=== PATIENT | female | born 1995 | race Caucasian/White ===

== ENCOUNTER 2017-06-27 18:26 | Emergency (ER) | payer OTHER ==
[~2017-06-27] VITALS: Ht 162.6 cm; Wt 82.5 kg
[~2017-06-27 18:26] MED LIST: MOTRIN600 MG PO; microgestin
[2017-06-27 20:02] LABS: BASOPHIL (%) 0.5 % (0-1); BASOPHIL COUNT 0.1 K/uL (0-0.1); EOSINOPHIL (%) 1.1 % (0-5); EOSINOPHIL COUNT 0.1 K/uL (0-0.3); HEMOGLOBIN 14.1 G/DL (11.9-15.5); IMMATURE GRANULOCYTE (%) 0.3 % (0.0-0.7); LYMPHOCYTE COUNT 2.1 K/uL (1.0-2.8); MCH 27.7 PG (29.0-34.0); MCHC 33.6 G/DL (30.0-36.0); MCV 82.5 FL (83-99); MONOCYTE (%) 7.9 % (3-12); MONOCYTE COUNT 0.7 K/uL (0-0.8); NEUTROPHIL (%) 67.2 % (45-76); NEUTROPHIL COUNT 6.2 K/uL (1.8-6.4); PLATELET COUNT 364 K/uL (156-360); RBC DIS.WIDTH-SD 36.4 % (39-53); RED BLOOD COUNT 5.09 M/uL (3.80-5.20); WHITE BLOOD COUNT 9.3 K/uL (4.1-10.2)
[2017-06-27 20:25] LABS: ALBUMIN 3.9 g/dL (3.2-4.8); CHLORIDE 105 mEq/L (99-109); POTASSIUM 3.7 mEq/L (3.7-5.4); SODIUM 139 mEq/L (136-147)
[2017-06-27 20:27] LABS: GLUCOSE 87 mg/dL (70-99)
[2017-06-27 20:28] LABS: TOTAL PROTEIN 7.9 g/dL (6.4-8.3)
[2017-06-27 20:29] LABS: TOTAL BILIRUBIN 0.5 mg/dL (0.0-1.0)
[2017-06-27 20:31] LABS: ALKALINE PHOSPHATASE 88 IU/L (3-129); CREATININE 0.8 mg/dL (0.6-1.3); GFR ESTIMATE (CALCULATED) > 59 mL/min/
[2017-06-27 20:32] LABS: UREA NITROGEN (BUN) 5 mg/dL (9-23)
[2017-06-27 20:33] LABS: AST (GOT) 16 IU/L (2-34)
[2017-06-27 20:34] LABS: ALT (GPT) 17 IU/L (3-49)
[2017-06-27 21:07] LABS: QUANTITATIVE HCG < 4.0 MIU/ML
[2017-06-27 22:45] LABS: APPEARANCE CLEAR ((CLEAR)); BILIRUBIN NEGATIVE; BLOOD SMALL; COLOR YELLOW ((YELLOW)); GLUCOSE (STRIP) NEGATIVE; KETONES NEGATIVE; LEUKOCYTES LARGE; NITRITE NEGATIVE; PROTEIN (STRIP) NEGATIVE; SPECIFIC GRAVITY 1.039 (1.000-1.030); UROBILINOGEN 0.2 MG/DL (0.2-1.0)
[2017-06-27 22:58] LABS: BACTERIA RARE /HPF; EPITHELIAL CELLS 2+ /HPF; MUCUS TRACE /LPF; UCUL ADDED? YES; WHITE BLOOD CELLS TNTC /HPF (0-5)
[2017-06-27] MEDS ORDERED: ZITHROMAX Z-PA250 MG PO (23:13)
[2017-06-27 23:27] VITALS: BP 136/84
== END 2017-06-27 23:29 | disposition home or self-care (01) ==
LOC: RME 18:26 → EME 18:26 → RME 23:29
PROVIDERS: Physician Assistant
DX: J18.9 Pneumonia, unspecified organism (principal); S29.011A Strain of muscle and tendon of front wall of thorax, initial encounter
CPT/HCPCS: 71275; 80053; 81003; 84702; 85025; 85379; 87086; 99281; 99284; J0696